=== PATIENT | female | born 1955 | race Caucasian/White ===

== ENCOUNTER 2018-07-27 15:36 | Inpatient (IN) | payer OTHER ==
[2018-07-27] MEDS ORDERED: SODIUM CHLORIDE 1,000 ML IV STA ×2 (16:04→17:52)
[2018-07-27] MEDS ORDERED: ACETAMINOPHEN 1000 MG/100 ML VIAL (NON FORMULARY) IVPB ONE (16:04)
[2018-07-27] MEDS ORDERED: ACETAMINOPHEN INJECTION 100 ML IVPB ONE (16:15)
[2018-07-27 16:35] LABS: BASO % 0.1 % (0-2.0); HEMATOCRIT 35.6 % (32.4-45.2); HEMOGLOBIN 11.9 GM/dL (10.7-15.3); MCH 30.6 pg (25.7-33.7); MCHC 33.6 g/dl (32.0-36.0); MEAN CELL VOLUME 91.1 fl (80-96); MEAN PLT VOLUME 7.7 fl (7.5-11.1); MONO % 6.8 % (3.8-10.2); NEUT % 87.1 % (42.8-82.8); PLATELET COUNT 205 K/MM3 (134-434); RDW 14.8 % (11.6-15.6); WHITE BLOOD COUNT 13.4 K/mm3 (4.0-10.0)
[2018-07-27 16:47] LABS: INR 1.33 (0.83-1.09); PROTHROMBIN TIME (PATIENT) 15.7 SEC (9.7-13.0)
[2018-07-27 16:58] LABS: ALBUMIN 3.1 g/dl (3.4-5.0); ALK PHOS 92 U/L (45-117); ANION GAP 10 MMOL/L (8-16); BILIRUBIN,TOTAL 0.7 mg/dL (0.2-1); BLOOD UREA NITROGEN 16 mg/dL (7-18); CALCIUM 8.1 mg/dL (8.5-10.1); CHLORIDE 97 mmol/L (98-107); CO2 24 mmol/L (21-32); CREATININE 1.3 mg/dL (0.55-1.3); GLUCOSE,RANDOM 154 mg/dL (74-106); POTASSIUM 3.6 mmol/L (3.5-5.1); SGOT/AST 77 U/L (15-37); SGPT/ALT 56 U/L (13-61); SODIUM 132 mmol/L (136-145)
[2018-07-27 17:10] LABS: URINE APPEARANCE SLCLOUDY; URINE BILIRUBIN NEGATIVE (<2.0 mg/dL); URINE COLOR YELLOW; URINE GLUCOSE (UA) 1+ (NEGATIVE); URINE KETONE 1+ (NEGATIVE); URINE LEUK ESTERASE 3+ (NEGATIVE); URINE NITRITE NEGATIVE (NEGATIVE); URINE PROTEIN 1+ (NEGATIVE); URINE UROBILINOGEN NEGATIVE mg/dL (0.2-1.0)
--- NOTE | 2018-07-27 17:18 | PDOC ---
History of Present Illness - General Chief Complaint: SIRS, Suspected/Possible Stated Complaint: FEVER/HEADACHE Time Seen by Provider: 07/27/18 16:07 History Source: Patient Exam Limitations: No Limitations - History of Present Illness Initial Comments: 63 yo F with no past medical history presents to the emergency department with fever, headache, and dysuria for 6 days. 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 She states she has had malaise and increased urinary frequency. Endorses getting the flu vaccine. Denies the following: diaphoresis, nausea, vomiting, ears/nose/throat pain, chest pain, SOB, abdominal pain, diarrhea, hematuria, hematochezia, and leg pain /swelling. No recent travels. Did not take medicine at home. Allergies: NKDA Shx: C/S Social: Denies tobacco, alcohol, and substance abuse. Past History - Past Medical History Allergies/Adverse Reactions: Allergies Allergy/AdvReac Type Severity Reaction Status Date / Time No Known Allergies Allergy Verified 07/27/18 16:03 Home Medications: Ambulatory Orders Calcium Carbonate/Vitamin D3 [Calcium 500-Vit D3 200 Caplet] 1 each PO DAILY Ibuprofen [Motrin -] 800 mg PO DAILY 01/08/15 Loratadine [Claritin -] 10 mg PO DAILY 01/08/15 Polyethylene Glycol 3350 [Miralax 255 gm Btl -] 17 gm PO DAILY 01/08/15 Ammonium Lactate Cream [Lac-Hydrin 12% Cream -] 1 applic TP DAILY 04/16/15 Pantoprazole Sodium [Protonix -] 40 mg PO DAILY #30 tablet.ec 04/17/15 Anemia: No Asthma: No Cancer: No Cardiac Disorders: No CVA: No COPD: No CHF: No Dementia: No Diabetes: No GI Disorders: Yes (DIVERTICULOSIS, MELANOSIS COLI) Disorders: No HTN: No Hypercholesterolemia: No Liver Disease: No Seizures: No Thyroid Disease: No - Surgical History Abdominal Surgery: No Appendectomy: No Cardiac Surgery: No Cholecystectomy: No Lung Surgery: No Neurologic Surgery: No Orthopedic Surgery: No - Suicide/Smoking/Psychosocial Hx Smoking History: Never smoked Have you smoked in the past 12 months: No Information on smoking cessation initiated: No Hx Alcohol Use: No Drug/Substance Use Hx: No Substance Use Type: None Review of Systems - Review of Systems Able to Perform ROS?: Yes Is the patient limited Filipino proficient: No Constitutional: Yes: Chills, Fever, Malaise. No: Diaphoresis, Weakness HEENTM: No: Eye Pain, Recent change in vision, Ear Pain, Nose Pain, Throat Pain , Mouth Pain Respiratory: Yes: Cough. No: Shortness of Breath, SOB with Exertion, Hemoptysis Cardiac (ROS): No: Chest Pain, Lightheadedness, Palpitations, Syncope, Chest Tightness ABD/GI: No: Constipated, Diarrhea, Nausea, Rectal Bleeding, Vomiting, Tarry Stools : Yes: Dysuria, Frequency. No: Discharge, Flank Pain, Hematuria Musculoskeletal: No: Back Pain, Joint Pain, Neck Pain Neurological: Yes: Headache. No: Numbness, Tingling, Tremors, Ataxia, Dizziness Psychiatric: No: Change in Appetite Endocrine: No: Unexplained Weight Gain Hematologic/Lymphatic: No: Anemia *Physical Exam - Vital Signs Last Vital Signs Temp Pulse Resp BP Pulse Ox 102.3 F H 112 H 16 114/64 100 07/27/18 16:01 07/27/18 16:01 07/27/18 16:01 07/27/18 16:01 07/27/18 16:01 - Physical Exam General Appearance: Yes: Nourished, Appropriately Dressed. No: Apparent Distress, Intoxicated HEENT: positive: EOMI, GUY, Normal Voice, Symmetrical, Pharynx Normal, Hearing Grossly Normal. negative: Pale Conjunctivae, Scleral Icterus (R), Scleral Icterus (L), Muffled/Hoarse voice, Pharyngeal Erythema, Tonsillar Exudate, Tonsillar Erythema, Nasal Congestion, Rhinorrhea, Sinus Tenderness, Excessive drooling Neck: positive: Trachea midline, Supple. negative: Tender, Lymphadenopathy (R) , Lymphadenopathy (L), Tender lateral, Tender midline Respiratory/Chest: positive: Lungs Clear, Normal Breath Sounds. negative: Chest Tender, Respiratory Distress, Accessory Muscle Use, Crackles, Rales, Rhonchi, Stridor, Wheezing Cardiovascular: positive: Regular Rhythm, S1, S2, Tachycardia. negative: Systolic Murmur Gastrointestinal/Abdominal: positive: Normal Bowel Sounds, Flat, Soft. negative : Tender, Rebound, Tenderness, Hernia Lymphatic: negative: Adenopathy Musculoskeletal: positive: Normal Inspection. negative: CVA Tenderness, Vertebral Tenderness Extremity: positive: Normal Capillary Refill, Normal Inspection, Normal Range of Motion. negative: Tender, Swelling, Calf Tenderness Integumentary: positive: Normal Color, Dry, Warm. negative: Rash, Swelling Neurologic: positive: dock operator II-XII NML intact, Fully Oriented, Alert, Normal Mood/ Affect, Normal Response, Motor Strength 5/5. negative: EOM Palsy, Facial Droop Moderate Sedation - Procedure Monitoring Vital Signs: Procedure Monitoring Vital Signs Temperature 102.3 F H 07/27/18 16:01 Pulse Rate 112 H 07/27/18 16:01 Respiratory Rate 16 07/27/18 16:01 Blood Pressure 114/64 07/27/18 16:01 O2 Sat by Pulse Oximetry (%) 100 07/27/18 16:01 ED Treatment Course - LABORATORY CBC & Chemistry Diagram: 07/28/18 06:40 07/28/18 06:40 - ADDITIONAL ORDERS Additional order review: Laboratory Results 07/27/18 07/27/18 07/27/18 17:00 16:22 16:22 PT with INR INR PTT (Actin FS) Sodium 132 L Potassium 3.6 Chloride 97 L Carbon Dioxide 24 Anion Gap 10 BUN 16 Creatinine 1.3 Creat Clearance w eGFR 41.50 Random Glucose 154 H Lactic Acid 1.8 Calcium 8.1 L Total Bilirubin 0.7 AST 77 H ALT 56 Alkaline Phosphatase 92 Total Protein 8.0 Albumin 3.1 L Urine Color Yellow Urine Appearance Slcloudy Urine pH 5.0 Ur Specific [place] 1.013 Urine Protein 1+ H Urine Glucose (UA) 1+ H Urine Ketones 1+ H Urine Blood 2+ H Urine Nitrite Negative Urine Bilirubin Negative Urine Urobilinogen Negative Ur Leukocyte Esterase 3+ H 07/27/18 16:22 PT with INR 15.70 H INR 1.33 H PTT (Actin FS) 31.0 Sodium Potassium Chloride Carbon Dioxide Anion Gap BUN Creatinine Creat Clearance w eGFR Random Glucose Lactic Acid Calcium Total Bilirubin AST ALT Alkaline Phosphatase Total Protein Albumin Urine Color Urine Appearance Urine pH Ur Specific [place] Urine Protein Urine Glucose (UA) Urine Ketones Urine Blood Urine Nitrite Urine Bilirubin Urine Urobilinogen Ur Leukocyte Esterase 07/27/18 16:22 RBC 3.90 MCV 91.1 MCHC 33.6 RDW 14.8 MPV 7.7 Neutrophils % 87.1 H Lymphocytes % 6.0 L Monocytes % 6.8 Eosinophils % 0.0 Basophils % 0.1 - Medications Given in the ED: ED Medications Discontinued Medications Generic Name Dose Route Start Last Admin Trade Name Mikeq PRN Reason Stop Dose Admin Acetaminophen 1,000 mg 07/27/18 16:04 07/27/18 16:36 Ofirmev Injection - IVPB 07/27/18 16:05 1,000 mg ONCE ONE Administration Sodium Chloride 1,000 mls @ 1,000 mls/hr 07/27/18 16:04 07/27/18 16:34 Normal Saline - IV 07/27/18 17:03 1,000 mls/hr ASDIR STA Administration Medical Decision Making - Medical Decision Making 63 yo F with no past medical history presents to the emergency department with fever, headache, and dysuria for 6 days. initial vitals: Initial Vital Signs Temp Pulse Resp BP Pulse Ox 102.3 F H 112 H 16 114/64 100 07/27/18 16:01 07/27/18 16:01 07/27/18 16:01 07/27/18 16:01 07/27/18 16:01 Work up: ddx: URI vs influenza vs UTI vs PNA Laboratory Tests 07/27/18 07/27/18 07/27/18 16:22 16:22 16:22 WBC 13.4 H RBC 3.90 Hgb 11.9 Hct 35.6 MCV 91.1 MCH 30.6 MCHC 33.6 RDW 14.8 Plt Count 205 MPV 7.7 Absolute Neuts (auto) 11.6 H Neutrophils % 87.1 H Lymphocytes % 6.0 L Monocytes % 6.8 Eosinophils % 0.0 Basophils % 0.1 Nucleated RBC % 0 PT with INR 15.70 H INR 1.33 H PTT (Actin FS) 31.0 Sodium 132 L Potassium 3.6 Chloride 97 L Carbon Dioxide 24 Anion Gap 10 BUN 16 Creatinine 1.3 Creat Clearance w eGFR 41.50 Random Glucose 154 H Lactic Acid Calcium 8.1 L Total Bilirubin 0.7 AST 77 H ALT 56 Alkaline Phosphatase 92 Creatine Kinase 124 Troponin I < 0.02 Total Protein 8.0 Albumin 3.1 L Urine Color Urine Appearance Urine pH Ur Specific [place] Urine Protein Urine Glucose (UA) Urine Ketones Urine Blood Urine Nitrite Urine Bilirubin Urine Urobilinogen Ur Leukocyte Esterase Urine WBC (Auto) Urine RBC (Auto) Ur Epithelial Cells Urine Bacteria Urine Mucus Influenza A (Rapid) Influenza B (Rapid) 07/27/18 07/27/18 07/27/18 16:22 16:30 17:00 WBC RBC Hgb Hct MCV MCH MCHC RDW Plt Count MPV Absolute Neuts (auto) Neutrophils % Lymphocytes % Monocytes % Eosinophils % Basophils % Nucleated RBC % PT with INR INR PTT (Actin FS) Sodium Potassium Chloride Carbon Dioxide Anion Gap BUN Creatinine Creat Clearance w eGFR Random Glucose Lactic Acid 1.8 Calcium Total Bilirubin AST ALT Alkaline Phosphatase Creatine Kinase Troponin I Total Protein Albumin Urine Color Yellow Urine Appearance Slcloudy Urine pH 5.0 Ur Specific [place] 1.013 Urine Protein 1+ H Urine Glucose (UA) 1+ H Urine Ketones 1+ H Urine Blood 2+ H Urine Nitrite Negative Urine Bilirubin Negative Urine Urobilinogen Negative Ur Leukocyte Esterase 3+ H Urine WBC (Auto) 97 Urine RBC (Auto) 15 Ur Epithelial Cells Rare Urine Bacteria Many Urine Mucus Rare Influenza A (Rapid) Negative Influenza B (Rapid) Negative leukocytosis present. UA shows 3+ leuk esterase, 97 WBC, and many bacteria. influenza is negative. patient was given NS, tylenol, ceftriaxone. patient's cxr was negative for acute pathologies. EKG shows ventricualr rate of 96 bpm, PA 154 ms, QTc is 437 ms, and QRS is 80 ms. Normal sinus rhythm without ST elevations or depressions. patient had near syncopal episode in the department without LOC or head trauma. will be admitted to [facility]. likely near syncope due to dehydration 2/2 sepsis 2/2 UTI. Dispo Admit *DC/Admit/Observation/Transfer Diagnosis at time of Disposition: Sepsis Qualifiers: Sepsis type: sepsis due to unspecified organism Qualified Code(s): A41.9 - Sepsis, unspecified organism UTI (urinary tract infection) Qualifiers: Urinary tract infection type: site unspecified Hematuria presence: without hematuria Qualified Code(s): N39.0 - Urinary tract infection, site not specified - Referrals - Patient Instructions - Post Discharge Activity
[2018-07-27 17:23] LABS: EPI CELLS RARE /HPF (FEW); URINE BACTERIA MANY /hpf (NONE SEEN); URINE MUCUS RARE
[2018-07-27] MEDS ORDERED: CEFTRIAXONE 1 GM in DEXTROSE 5%-WATER - 100 ML IVPB ONE (17:51)
[2018-07-27] MEDS ORDERED: CEFTRIAXONE 1 GM/50 ML BAG ONE (17:59)
--- NOTE | 2018-07-27 18:21 | PDOC ---
Attending Attestation - Resident Resident Name: HumphreyVentura - ED Attending Attestation I have performed the following: I have examined & evaluated the patient, The case was reviewed & discussed with the resident, I agree w/resident's findings & plan, Exceptions are as noted - HPI HPI: 07/27/18 17:54 The patient is a 63 year old female with no significant past medical history who presents to the emergency department with fever for 6 days. The patient reports that she has been experiencing some associated malaise, dysuria and frequency with her symptoms. 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 She endorses having her flu vaccination. She denies any other symptoms or complaints. Of note, pt was initially seen in vertical area but had a near-syncopal episode. Pt denies total LOC. Denies CP/SOB/palpitations. - Physicial Exam PE: 07/27/18 18:23 Agree with resident exam - Critical Care Time Total Critical Care Time: 45 Critical Care Statement: The care of this patient involved high complexity decision making to prevent further life threatening deterioration of the patient 's condition and/or to evaluate & treat vital organ system(s) failure or risk of failure. - Medical Decision Making 07/27/18 18:23 63 F with fevers, bodyaches, dysuria. Febrile and tachycardic in ED. Will perform sepsis w/u. Pt also had near syncopal episode, likely 2/2 infectious process. EKG with no evidence of arrhythmia or ischemia. - Labs, cultures - CXR, UA - IVF, tylenol - Tele monitoring
[2018-07-27] MEDS ORDERED: ACETAMINOPHEN 325 MG TABLET (FP) PO PRN (19:24)
[2018-07-27] MEDS: SODIUM CHLORIDE 1,000 ML IV SCH (19:26)
--- NOTE | 2018-07-27 19:26 | HP ---
CHIEF COMPLAINT: fever HISTORY OF PRESENT ILLNESS: Patient is a 63yo F with no PMHx presents with complaints of fever and malaise for a week. She admits to having increased urinary frequency, dysuria, and burning that also started last week. Patient has no history of UTI's. 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 She also says she has been feeling very dizzy which she attributes to dehydration. She has not taken any medications for the fevers. She denies abdominal pain, sob, cough, chest pain, nausea, vomiting, blood in urine, diarrhea, chest pain, headaches, weight changes, constipation. ER course was notable for: (1) 102.3 Temp, HR 112, 99/56 BP (2) + UA: 3+ LE, 97 WBC Recent Travel: denies PAST MEDICAL HISTORY: none PAST SURGICAL HISTORY: 3 c-sections Social History: Smoking: denies Alcohol: occasional Drugs: denies Family History: Allergies No Known Allergies Allergy (Verified 07/27/18 16:03) HOME MEDICATIONS: Home Medications Medication Instructions Recorded Calcium Carbonate/Vitamin D3 1 each PO DAILY 01/08/15 [Calcium 500-Vit D3 200 Caplet] Ibuprofen [Motrin -] 800 mg PO DAILY 01/08/15 Loratadine [Claritin -] 10 mg PO DAILY 01/08/15 Polyethylene Glycol 3350 [Miralax 17 gm PO DAILY 01/08/15 255 gm Btl -] Ammonium Lactate Cream [Lac-Hydrin 1 applic TP DAILY 04/16/15 12% Cream -] Pantoprazole Sodium [Protonix -] 40 mg PO DAILY #30 tablet.ec 04/17/15 REVIEW OF SYSTEMS CONSTITUTIONAL: fevers, chills, malaise, loss of appetite Absent: diaphoresis, generalized weakness, weight change HEENT: Absent: rhinorrhea, nasal congestion, throat pain, throat swelling, difficulty swallowing, mouth swelling, ear pain, eye pain, visual changes CARDIOVASCULAR: Absent: chest pain, syncope, palpitations, irregular heart rate, lightheadedness , peripheral edema RESPIRATORY: Absent: cough, shortness of breath, dyspnea with exertion, orthopnea, wheezing, stridor, hemoptysis GASTROINTESTINAL: Absent: abdominal pain, abdominal distension, nausea, vomiting, diarrhea, constipation, melena, hematochezia GENITOURINARY: dysuria, frequency, urgency Absent: hesitancy, hematuria, flank pain, genital pain MUSCULOSKELETAL: Absent: myalgia, arthralgia, joint swelling, back pain, neck pain SKIN: Absent: rash, itching, pallor NEUROLOGIC: Absent: headache, focal weakness or paresthesias, dizziness, unsteady gait, seizure, mental status changes, bladder or bowel incontinence PSYCHIATRIC: Absent: anxiety, depression, suicidal or homicidal ideation, hallucinations. PHYSICAL EXAMINATION Vital Signs - 24 hr 07/27/18 07/27/18 07/27/18 16:01 17:58 19:07 Temperature 102.3 F H 99.0 F Pulse Rate 112 H Pulse Rate [ 85 80 Apical] Respiratory 16 18 17 Rate Blood Pressure 114/64 Blood Pressure 99/56 L 107/60 [Left] O2 Sat by Pulse 100 98 98 Oximetry (%) GENERAL: Awake, alert, and fully oriented, in no acute distress. HEAD: Normal with no signs of trauma. EYES: Pupils equal, round and reactive to light, extraocular movements intact, sclera anicteric, conjunctiva clear. No lid lag. EARS, NOSE, THROAT: oropharynx clear without exudates. Moist mucous membranes. NECK: supple without lymphadenopathy, JVD, or masses. LUNGS: Breath sounds equal, clear to auscultation bilaterally. No wheezes, and no crackles. HEART: Regular rate and rhythm, normal S1 and S2 without murmur, rub or gallop. ABDOMEN: Soft, nontender, not distended, normoactive bowel sounds, no guarding, no rebound, no masses. No CVA tenderness. LOWER EXTREMITIES: 2+ pulses, warm, well-perfused. No peripheral edema. NEUROLOGICAL: Cranial nerves II-XII intact. Normal speech. SKIN: Warm, dry, normal turgor, no rashes or lesions noted, normal capillary refill. Laboratory Results - last 24 hr 07/27/18 07/27/18 07/27/18 16:22 16:22 16:22 WBC 13.4 H RBC 3.90 Hgb 11.9 Hct 35.6 MCV 91.1 MCH 30.6 MCHC 33.6 RDW 14.8 Plt Count 205 MPV 7.7 Absolute Neuts (auto) 11.6 H Neutrophils % 87.1 H Lymphocytes % 6.0 L Monocytes % 6.8 Eosinophils % 0.0 Basophils % 0.1 Nucleated RBC % 0 PT with INR 15.70 H INR 1.33 H PTT (Actin FS) 31.0 Sodium 132 L Potassium 3.6 Chloride 97 L Carbon Dioxide 24 Anion Gap 10 BUN 16 Creatinine 1.3 Creat Clearance w eGFR 41.50 Random Glucose 154 H Lactic Acid Calcium 8.1 L Total Bilirubin 0.7 AST 77 H ALT 56 Alkaline Phosphatase 92 Creatine Kinase 124 Troponin I < 0.02 Total Protein 8.0 Albumin 3.1 L Urine Color Urine Appearance Urine pH Ur Specific [place] Urine Protein Urine Glucose (UA) Urine Ketones Urine Blood Urine Nitrite Urine Bilirubin Urine Urobilinogen Ur Leukocyte Esterase Urine WBC (Auto) Urine RBC (Auto) Ur Epithelial Cells Urine Bacteria Urine Mucus Influenza A (Rapid) Influenza B (Rapid) 07/27/18 07/27/18 07/27/18 16:22 16:30 17:00 WBC RBC Hgb Hct MCV MCH MCHC RDW Plt Count MPV Absolute Neuts (auto) Neutrophils % Lymphocytes % Monocytes % Eosinophils % Basophils % Nucleated RBC % PT with INR INR PTT (Actin FS) Sodium Potassium Chloride Carbon Dioxide Anion Gap BUN Creatinine Creat Clearance w eGFR Random Glucose Lactic Acid 1.8 Calcium Total Bilirubin AST ALT Alkaline Phosphatase Creatine Kinase Troponin I Total Protein Albumin Urine Color Yellow Urine Appearance Slcloudy Urine pH 5.0 Ur Specific [place] 1.013 Urine Protein 1+ H Urine Glucose (UA) 1+ H Urine Ketones 1+ H Urine Blood 2+ H Urine Nitrite Negative Urine Bilirubin Negative Urine Urobilinogen Negative Ur Leukocyte Esterase 3+ H Urine WBC (Auto) 97 Urine RBC (Auto) 15 Ur Epithelial Cells Rare Urine Bacteria Many Urine Mucus Rare Influenza A (Rapid) Negative Influenza B (Rapid) Negative ASSESSMENT/PLAN: 63yo F with no PMHx presents with complaints of fever and malaise for a week found to be septic from UTI. #Sepsis 2/2 Complicated UTI -Febrile 102.3, tachy, +UA -Cxr unremarkable -2L NS Bolus in ED -1x Ceftriaxone in ED -Flu negative, patient received flu vaccine -Cont. IV abx: Ceftriaxone -IV fluids NS @ 100ml/hour -Tylenol prn for fever -bcx, urine cx pending -monitor BP #ROLF -cr 1.3 -likely prerenal -IV fluids -Avoid nephrotoxins #FEN -IV fluids NS @100 -monitor -regular diet #DVT -Lovenox 40sq dispo: med-surge Visit type - Emergency Visit Emergency Visit: Yes ED Registration Date: 07/27/18 Care time: The patient presented to the Emergency Department on the above date and was hospitalized for further evaluation of their emergent condition. - New Patient This patient is new to me today: Yes Date on this admission: 07/27/18 - Critical Care Critical Care patient: No
--- NOTE | 2018-07-27 19:40 | PN ---
Teaching Attending Note Name of Resident: Arun Shaw ATTENDING PHYSICIAN STATEMENT I saw and evaluated the patient. I reviewed the resident's note and discussed the case with the resident. I agree with the resident's findings and plan as documented. SUBJECTIVE: Patient is a 63 year old woman with PMH of GERD and colonic diverticulosis who presents to the ER with fever for 6 days. The patient reports that she has been experiencing some associated malaise, dysuria and frequency with her symptoms. 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 She got Flu vaccination this year. She denies any other symptoms or complaints. Of note, pt was initially seen in vertical area but had a near- syncopal episode. She denies total LOC. Denies chest pain, nausea, diarrhea, SOB or palpitations. OBJECTIVE: Alert Vital Signs Period Temp Pulse Resp BP Sys/Watts Pulse Ox Last 24 Hr 99.0 F-102.3 F 80-112 16-18 99-114/56-64 98-100 HEENT: No Jaundice, eye redness or discharge, PERRLA, EOMI. Normocephalic, atraumatic. External ears are normal and hearing is grossly intact. No nasal discharge. Neck: Supple, nontender. No palpable adenopathy or thyromegaly. No JVD Chest: Good effort. Clear to auscultation and percussion. Heart: Regular. No S3, rub or murmur Abdomen: Not distended, soft, nontender and no HSM. No rebound or guarding. Normoactive bowel sounds. Ext: Peripheral pulses intact. No leg edema. Skin: Warm and dry. No petechiae, rash or ecchymosis. Neuro: Alert. Oriented x3. CN 2-12 grossly intact. Sensation grossly intact in all four extremities and DTR are symmetric. Current Medications Generic Name Dose Route Start Last Admin Trade Name Freq PRN Reason Stop Dose Admin Acetaminophen 650 mg 07/27/18 19:24 Tylenol - PO Q4H PRN FEVER Enoxaparin Sodium 40 mg 07/28/18 10:00 Lovenox - SQ DAILY INNA Sodium Chloride 1,000 mls @ 100 mls/hr 07/27/18 19:30 07/27/18 19:26 Normal Saline - IV 100 mls/hr ASDIR INNA Administration Ceftriaxone Sodium 1 gm/ 50 mls @ 100 mls/hr 07/28/18 10:00 Dextrose IVPB DAILY [facility] Protocol Home Medications Medication Instructions Recorded Calcium Carbonate/Vitamin D3 1 each PO DAILY 01/08/15 [Calcium 500-Vit D3 200 Caplet] Ibuprofen [Motrin -] 800 mg PO DAILY 01/08/15 Loratadine [Claritin -] 10 mg PO DAILY 01/08/15 Polyethylene Glycol 3350 [Miralax 17 gm PO DAILY 01/08/15 255 gm Btl -] Ammonium Lactate Cream [Lac-Hydrin 1 applic TP DAILY 04/16/15 12% Cream -] Pantoprazole Sodium [Protonix -] 40 mg PO DAILY #30 tablet.ec 04/17/15 Abnormal Lab Results 07/27/18 07/27/18 07/27/18 16:22 16:22 16:22 WBC 13.4 H Absolute Neuts (auto) 11.6 H Neutrophils % 87.1 H Lymphocytes % 6.0 L PT with INR 15.70 H INR 1.33 H Sodium 132 L Chloride 97 L Random Glucose 154 H Calcium 8.1 L AST 77 H Albumin 3.1 L Urine Protein Urine Glucose (UA) Urine Ketones Urine Blood Ur Leukocyte Esterase 07/27/18 17:00 WBC Absolute Neuts (auto) Neutrophils % Lymphocytes % PT with INR INR Sodium Chloride Random Glucose Calcium AST Albumin Urine Protein 1+ H Urine Glucose (UA) 1+ H Urine Ketones 1+ H Urine Blood 2+ H Ur Leukocyte Esterase 3+ H ASSESSMENT AND PLAN: 1. Sepsis due to UTI - Will continue IV Rocephin 1 gm q 24 hours and aggressive hydration with IV NS. Repeat lactic acid. Near syncope likely vasovagal effect related to sepsis. Will check HbA1c and repeat urinalysis to assess for proteinuria once UTI resolves. 2. DVT prophylaxis - Lovenox 40 mg SQ q 24 hours. 3. Advance directives - Full code
[2018-07-27 20:54] VITALS: BMI 26.7
[2018-07-28] MEDS: SODIUM CHLORIDE 1,000 ML IV SCH ×2 (06:27→17:35)
[2018-07-28] MEDS ORDERED: PT OWN MED DRAWER 7, Y5N ONE (07:52)
[2018-07-28 07:54] LABS: BASO % 0.1 % (0-2.0); HEMATOCRIT 29.7 % (32.4-45.2); HEMOGLOBIN 10.1 GM/dL (10.7-15.3); MCH 30.8 pg (25.7-33.7); MCHC 33.8 g/dl (32.0-36.0); MEAN CELL VOLUME 91.1 fl (80-96); MEAN PLT VOLUME 7.9 fl (7.5-11.1); MONO % 8.4 % (3.8-10.2); NEUT % 79.5 % (42.8-82.8); PLATELET COUNT 178 K/MM3 (134-434); RBC 3.26 M/mm3 (3.60-5.2); RDW 14.6 % (11.6-15.6)
[2018-07-28 09:09] LABS: ALBUMIN 2.4 g/dl (3.4-5.0); ALK PHOS 80 U/L (45-117); ANION GAP 7 MMOL/L (8-16); BILIRUBIN,TOTAL 0.4 mg/dL (0.2-1); BLOOD UREA NITROGEN 10 mg/dL (7-18); CALCIUM 7.3 mg/dL (8.5-10.1); CHLORIDE 109 mmol/L (98-107); CO2 24 mmol/L (21-32); CREATININE 0.8 mg/dL (0.55-1.3); GLUCOSE,RANDOM 99 mg/dL (74-106); MAGNESIUM 2.4 mg/dL (1.8-2.4); PHOSPHOROUS 1.6 mg/dL (2.5-4.9); POTASSIUM 3.3 mmol/L (3.5-5.1); SGOT/AST 39 U/L (15-37); SGPT/ALT 39 U/L (13-61); SODIUM 140 mmol/L (136-145); TOT PROT 6.8 g/dl (6.4-8.2)
[2018-07-28] MEDS ORDERED: DEXTROSE 5%-WATER - 50 ML IVPB ONE (10:37)
[2018-07-28] MEDS ORDERED: cefTRIAXone SODIUM 1 GM VIAL ONE (10:37)
[2018-07-28] MEDS: CEFTRIAXONE 1 GM in DEXTROSE 5%-WATER - 50 ML IVPB SCH (10:43)
[2018-07-28] MEDS: ENOXAPARIN NA (PORCINE) 40 MG/0.4 ML DISP.SYRIN SQ SCH (10:47)
--- NOTE | 2018-07-28 11:40 | EKG ---
Test Reason : Blood Pressure : / mmHG Vent. Rate : 096 BPM Atrial Rate : 096 BPM P-R Int : 154 ms QRS Dur : 080 ms QT Int : 346 ms P-R-T Axes : 070 038 037 degrees QTc Int : 437 ms NORMAL SINUS RHYTHM NORMAL ECG NO PREVIOUS ECGS AVAILABLE Confirmed by GORAN BANERJEE, HAWA ([id number]) on 07/28/2018 11:40:37 AM Referred By: Confirmed By:HAWA ZIMMER MD
[2018-07-28] MEDS ORDERED: POTASSIUM CHLORIDE TABS 20 MEQ TABLET.ER (FP) PO ONE (11:45)
--- NOTE | 2018-07-28 15:54 | PN ---
Physical Exam: SUBJECTIVE: Patient seen and examined at bedside. No acute events overnight per nurse. Spoke to pt's daughter via phone who stayed with mother last night in the hospital. Reports pt had a fever overnight and was given Tylenol. +nausea. Denies cp, sob, abd pain, urinary frequency, dysuria. Denies blood in urine/ stool. Has better appetite today than yesterday. OBJECTIVE: Vital Signs Temperature 99.4 F 07/28/18 14:08 Pulse Rate 90 07/28/18 14:08 Respiratory Rate 18 07/28/18 14:08 Blood Pressure 114/69 07/28/18 14:08 O2 Sat by Pulse Oximetry (%) 98 07/28/18 09:00 GENERAL: Lao-speaking. AAOx3. Comfortable in bed. HEENT: AT/NC. EOMI. Moist mucus membranes. NECK: supple without lymphadenopathy, JVD, or masses. LUNGS: CTA B/L. No wheezes or crackles noted. HEART: RRR. Normal S1, S2. No murmurs noted. ABDOMEN: Soft NT/ND. +BS in all 4Qs. No masses noted. LOWER EXTREMITIES: 2+ pulses, warm, well-perfused. No peripheral edema. NEUROLOGICAL: Cranial nerves II-XII intact. Normal speech. SKIN: Warm, dry, normal turgor, no rashes or lesions noted, normal capillary refill. CBCD WBC 9.0 K/mm3 (4.0-10.0) 07/28/18 06:40 RBC 3.26 M/mm3 (3.60-5.2) L 07/28/18 06:40 Hgb 10.1 GM/dL (10.7-15.3) L 07/28/18 06:40 Hct 29.7 % (32.4-45.2) L D 07/28/18 06:40 MCV 91.1 fl (80-96) 07/28/18 06:40 MCHC 33.8 g/dl (32.0-36.0) 07/28/18 06:40 RDW 14.6 % (11.6-15.6) 07/28/18 06:40 Plt Count 178 K/MM3 (134-434) 07/28/18 06:40 MPV 7.9 fl (7.5-11.1) 07/28/18 06:40 CMP Sodium 140 mmol/L (136-145) 07/28/18 06:40 Potassium 3.3 mmol/L (3.5-5.1) L 07/28/18 06:40 Chloride 109 mmol/L (98-107) H 07/28/18 06:40 Carbon Dioxide 24 mmol/L (21-32) 07/28/18 06:40 Anion Gap 7 MMOL/L (8-16) L 07/28/18 06:40 BUN 10 mg/dL (7-18) 07/28/18 06:40 Creatinine 0.8 mg/dL (0.55-1.3) 07/28/18 06:40 Creat Clearance w eGFR > 60 (>60) 07/28/18 06:40 Calcium 7.3 mg/dL (8.5-10.1) L 07/28/18 06:40 Total Bilirubin 0.4 mg/dL (0.2-1) 07/28/18 06:40 AST 39 U/L (15-37) H 07/28/18 06:40 ALT 39 U/L (13-61) 07/28/18 06:40 Alkaline Phosphatase 80 U/L (45-117) 07/28/18 06:40 Total Protein 6.8 g/dl (6.4-8.2) 07/28/18 06:40 Albumin 2.4 g/dl (3.4-5.0) L 07/28/18 06:40 Active Medications Acetaminophen (Tylenol -) 650 mg PO Q4H PRN PRN Reason: FEVER Enoxaparin Sodium (Lovenox -) 40 mg SQ DAILY INNA Last Admin: 07/28/18 10:47 Dose: 40 mg Sodium Chloride (Normal Saline -) 1,000 mls @ 100 mls/hr IV ASDIR INAN Last Admin: 07/28/18 06:27 Dose: 100 mls/hr Ceftriaxone Sodium 1 gm/ (Dextrose) 50 mls @ 100 mls/hr IVPB DAILY INNA; Protocol Last Admin: 07/28/18 10:43 Dose: 100 mls/hr IMAGING: * CXR: No acute chest pathology. ASSESSMENT/PLAN: 63yo F with no PMHx presents with complaints of fever and malaise for a week found to be septic from UTI. #Sepsis 2/2 Complicated UTI; Pt feels much better today than during admission. -cont Ceftriaxone 1gm IVPB QD (started on 07/28/18) -NS @ 100 -CXR noted above; unremarkable. Flu swab neg. -Tylenol 650 mg PO Q4H PRN for fever -Bcx neg x24h, UCx pending -monitor BP #ROLF; resolved. BUN/Cr now 10/0.8 #FEN -NS @ 100 -recheck lytes in AM -regular diet #DVT -Lovenox 40sq Dispo -monitor on med-surg -DC planning for tomorrow pending UCx Visit type - Emergency Visit Emergency Visit: Yes ED Registration Date: 07/27/18 Care time: The patient presented to the Emergency Department on the above date and was hospitalized for further evaluation of their emergent condition. - New Patient This patient is new to me today: Yes Date on this admission: 07/28/18 - Critical Care Critical Care patient: No
--- NOTE | 2018-07-28 17:01 | PN ---
Teaching Attending Note Name of Resident: Uzair Mercer ATTENDING PHYSICIAN STATEMENT I saw and evaluated the patient. I reviewed the resident's note and discussed the case with the resident. I agree with the resident's findings and plan as documented. SUBJECTIVE: No fever or chills . No abd pain . feels much better OBJECTIVE: NAD Cv : RRR Lungs: CTAB Ext : no edema abd: Soft, NT, ND , NL BS ASSESSMENT AND PLAN: 63 y/o lady with h/o GERD and colonic diverticulosis who presented with fever and malaise and was found to have sepssi due to UTI 1- Sepsis 2/2 UTI: improved - cont IVF - Cont ceftriaxone - follow urine cx and blood cx diso : hopefully dc tomorrow pending urine cx
[2018-07-29] MEDS: SODIUM CHLORIDE 1,000 ML IV SCH (02:18)
[2018-07-29 09:17] LABS: ANION GAP 8 MMOL/L (8-16); BLOOD UREA NITROGEN 6 mg/dL (7-18); CALCIUM 7.9 mg/dL (8.5-10.1); CHLORIDE 109 mmol/L (98-107); CO2 23 mmol/L (21-32); CREATININE 0.9 mg/dL (0.55-1.3); GLUCOSE,RANDOM 94 mg/dL (74-106); POTASSIUM 3.6 mmol/L (3.5-5.1); SODIUM 141 mmol/L (136-145)
[2018-07-29] MEDS ORDERED: cefTRIAXone SODIUM 1 GM VIAL ONE (10:39)
[2018-07-29] MEDS ORDERED: DEXTROSE 5%-WATER - 50 ML IVPB ONE (10:39)
[2018-07-29] MEDS: ENOXAPARIN NA (PORCINE) 40 MG/0.4 ML DISP.SYRIN SQ SCH (10:54)
[2018-07-29] MEDS: CEFTRIAXONE 1 GM in DEXTROSE 5%-WATER - 50 ML IVPB SCH (10:54)
--- NOTE | 2018-07-29 13:27 | PN ---
Teaching Attending Note Name of Resident: Hien Frankel ATTENDING PHYSICIAN STATEMENT I saw and evaluated the patient. I reviewed the resident's note and discussed the case with the resident. I agree with the resident's findings and plan as documented. SUBJECTIVE: No fever or chills. No abd pain. No KNIGHT . OBJECTIVE: NAD Cv: RRR Lungs: CTAB Ext : no edema abd: Soft, NT, ND , NL BS ASSESSMENT AND PLAN: 63 y/o lady with h/o GERD and colonic diverticulosis who presented with fever and malaise and was found to have sepssi due to UTI 1- Sepsis 2/2 complicated UTI: improved urine cx still pending ( lactose fermenting GNB). final result will be back tomorrow Will send patient home on vantin for 8 more days to complete total of 10 days. will review final cx tomorrow and call her for Abx adjustment if needed blood cx neg to date :
--- NOTE | 2018-07-29 13:29 | DS ---
Physical Exam: SUBJECTIVE: Patient seen and examined at bedside. No acute events overnight. OBJECTIVE: Vital Signs Period Temp Pulse Resp BP Sys/Watts Pulse Ox Last 24 Hr 97.9 F-99.8 F 77-93 18-20 114-129/69-84 98-98 PHYSICAL EXAM GENERAL: Albanian-speaking. AAOx3. Comfortable in bed. HEENT: AT/NC. EOMI. Moist mucus membranes. NECK: supple without lymphadenopathy, JVD, or masses. LUNGS: CTA B/L. No wheezes or crackles noted. HEART: RRR. Normal S1, S2. No murmurs noted. ABDOMEN: Soft NT/ND. +BS in all 4Qs. No masses noted. LOWER EXTREMITIES: 2+ pulses, warm, well-perfused. No peripheral edema. NEUROLOGICAL: Cranial nerves II-XII intact. Normal speech. SKIN: Warm, dry, normal turgor, no rashes or lesions noted, normal capillary refill. LABS Laboratory Results - last 24 hr 07/29/18 07:40 Sodium 141 Potassium 3.6 Chloride 109 H Carbon Dioxide 23 Anion Gap 8 BUN 6 L Creatinine 0.9 Creat Clearance w eGFR > 60 Random Glucose 94 Calcium 7.9 L HOSPITAL COURSE: Date of Admission:07/27/18 63yo F with no PMHx presented with complaints of fever and malaise for a week found to be septic from UTI. Upon initial presentation, pt was found to be tachy , and febrile at 102.3 with +U/A. She was given IVf, Ceftriaxone, and admitted to [facility] monitoring. During pt's hospital course, pt's symptoms improved. Urine culture showed +E. coli. She was discharged home and prescribed Vantin for UTI. Additionally, she was advised to follow up with her PCP after discharge. Date of Discharge: 07/29/18 Minutes to complete discharge: 40 Discharge Summary Reason For Visit: UTI/PRE-SYNCOPE Current Active Problems UTI (urinary tract infection) (Acute) Condition: Improved - Instructions Diet, Activity, Other Instructions: You were seen in the hospital for fever and generalized malaise. In the hospital, you were found to have a urinary tract infection. You were given IV antibiotics. During your hospital course, your symptoms improved. You are being discharged home. MEDICATION INSTRUCTIONS You will need to continue taking oral antibiotics for your UTI. Please take Vantin 200 mg twice a day for 8 more days. You may start taking this medication tomorrow in the morning. Your last day should be on July. We will contact you regarding your urine culture results. Please continue taking the rest of your home medications as directed. REFERRALS Please follow up with your primary care physician, Dr. Ward, within 1 week. If you experience worsening abdominal pain, back pain, fever/chills, nausea/ vomiting, difficulty urinating, pain during urination, or other associated symptoms please make an appointment to see your primary care doctor as soon as possible or proceed to your nearest emergency room immediately. Referrals: Tiana Troncoso MD [Primary Care Provider] - 1 Week Disposition: HOME - Home Medications Comprehensive Discharge Medication List: Ambulatory Orders Polyethylene Glycol 3350 [Miralax 255 gm Btl -] 17 gm PO DAILY 01/08/15 Cefpodoxime Proxetil [Vantin -] 200 mg PO BID #16 tablet 07/29/18 This patient is new to me today: Yes Date on this admission: 08/02/18 Emergency Visit: Yes ED Registration Date: 07/27/18 Care time: The patient presented to the Emergency Department on the above date and was hospitalized for further evaluation of their emergent condition. Critical Care patient: No - Discharge Referral Referred to [facility] Med [facility] No
[2018-07-29 15:24] VITALS: BP 115/77; PULSE 90; TEMP 98.7
== END 2018-07-29 17:40 | disposition home or self-care (01) | DRG 720 ==
LOC: JER 15:36 → JERBED 19:03 → OBSVTOIN 19:20 → J5S 20:25
PROVIDERS: ADMIT Internal Medicine; ATTEND Internal Medicine
DX: A41.50 Gram-negative sepsis, unspecified (principal); N39.0 Urinary tract infection, site not specified; K21.9 Gastro-esophageal reflux disease without esophagitis; N17.9 Acute kidney failure, unspecified; R00.0 Tachycardia, unspecified; R50.9 Fever, unspecified; D72.829 Elevated white blood cell count, unspecified; B96.20 Unspecified Escherichia coli [E. coli] as the cause of diseases classified elsewhere; R55 Syncope and collapse; E86.0 Dehydration
CPT/HCPCS: 36415; 71045-TC-FY; 80048; 80053; 81003; 81015; 82550; 83036; 83605; 83735; 84100; 84484; 85025; 85610; 85730; 87040; 87086; 87186; 87804; 93005; 93010; 99284-25; G0378; J0131; J7030

== ENCOUNTER 2021-12-30 19:58 | Emergency (ER) | payer OTHER ==
[2021-12-30 20:07] VITALS: BP 138/86; PULSE 94; BMI 25.6
[2021-12-30] MEDS ORDERED: BACITRACIN 0.9 GM PACKET ONE (21:11)
[2021-12-30] MEDS ORDERED: ACETAMINOPHEN 500 MG TABLET (FP) PO ONE (21:59)
[2021-12-30] MEDS ORDERED: ACETAMINOPHEN 500 MG TABLET (FP) ONE (22:02)
[2021-12-30] MEDS ORDERED: DIPHTH,PERTUSS(ACELL),TET 0.5 ML DISP.SYRIN IM ONE ×2 (22:47→23:23)
[2021-12-31] MEDS ORDERED: BACITRACIN 15 GM TUBE TOPICAL OINTMENT TP ONE (00:21)
[2021-12-31] MEDS ORDERED: BACITRACIN 0.9 GM PACKET ONE (00:24)
== END 2021-12-31 00:59 | disposition home or self-care (01) ==
LOC: JER 19:58
PROC: 3E0234Z Introduction of Serum, Toxoid and Vaccine into Muscle, Percutaneous Approach (ICD-10-PCS; principal; 2021-12-30)
DX: S09.90XA Unspecified injury of head, initial encounter (principal); W01.0XXA Fall on same level from slipping, tripping and stumbling without subsequent striking against object, initial encounter
CPT/HCPCS: 70450-TC; 70486-TC; 72125-TC; 90471; 90715; 99285-25